=== PATIENT | female | born 1945 | race Caucasian/White ===

== ENCOUNTER → 2019-04-28 17:05 | Outpatient (CLI) | payer OTHER, SELFPAY ==
[2019-04-28 17:32] LABS: Bacteria 0 SEEN /hpf (None Seen); Mucous, Urine 0 SEEN /hpf (<or=2+); Red Blood Cells-Urine 0 SEEN /hpf (0-5); Squamous Epithelial Cells - UA 0 SEEN /hpf (5-10); White Blood Cells 0 SEEN /hpf (0-5)
[2019-04-28 18:03] LABS: Color, Urine Yellow (Yellow); Glucose, Dipstick Normal (Normal); Ketone-Dipstick 5 mg/dl (Negative); Leukocyte Esterase-Dipstick Negative /ul (Negative); Nitrite-Dipstick Negative (Negative); Occult Blood-Urine Negative /ul (Negative); Protein-Dipstick Negative (Negative); Specific Gravity, Urine 1.005 (1.002-1.030); Urine Bilirubin Dipstick Negative (Negative); Urine Clarity Clear (Clear); Urine Urobilinogen Normal (Normal)
== END ==
PROVIDERS: Family Provider Family Medicine; PCP Family Medicine; Referring Provider Nurse Practitioner Adult Health; Visit Provider Nurse Practitioner Adult Health
DX: R82.998 Other abnormal findings in urine (principal); R30.0 Dysuria
CPT/HCPCS: 81001; 87086; 87088

== ENCOUNTER → 2024-12-10 | Outpatient (CLI) | payer MEDICARE, SELFPAY ==
--- NOTE | 2024-12-10 06:53 | CT_ITS ---
PROCEDURE: CT ABD/PELVIS W/WO CONTRAST 12/10/2024 REASON FOR EXAM: HEMATURIA UTI TECHNIQUE: Abdomen and pelvis CT with intravenous contrast. Coronal and Sagittal reconstruction series were provided. Noncontrast, postcontrast and delayed contrast images obtained. PATIENT PREPARATION: Per protocol ORAL CONTRAST TYPE: None. CONTRAST: 71 cc [id number] IV One or more dose reduction techniques were used (e.g., Automated exposure control, adjustment of the mA and/or kV according to patient size, use of iterative reconstruction technique. RADIATION DOSE SUMMARY: CTDlvol: 35 mGy DLP: 1603.79 mGycm FINDINGS: Note of pulmonary emphysema at the visualized bases. Platelike area of atelectasis or scar at the left base. Appearance of pectus excavatum deformity suggested. Multiple varying size hepatic cysts are seen, incidental. The liver, adrenal glands, gallbladder, pancreas and spleen appear within limits. No renal stones or hydronephrosis. Symmetric appearing nephrograms without evidence of renal lesion identified. No perinephric edema. A few small left parapelvic renal cysts suggested. Portion of the right ureter as it crosses into the pelvis is not visualized on the delayed images otherwise the right and left renal collecting systems appear within limits. The bladder partially contains contrast and is nondistended, appears within limits. Abdominal aorta appears within limits without aneurysm. Aortoiliac atherosclerotic changes noted. No adenopathy. No bowel dilation or free air. Normal caliber appendix without secondary signs. Diverticulosis without diverticulitis. 3.1 x 2.2 cm cystic lesion left ovary/adnexa. The right ovary/adnexa and uterus appears within limits. No free fluid. Multilevel spondylosis/discogenic change appears greatest at L1-2 and L4-5. Scoliosis. CT/CT Abd/Pelvis W/WO Contrast IMPRESSION: No renal stones or hydronephrosis. Symmetric appearing nephrograms without evid ence of renal lesion identified. No perinephric edema. A few small left parapelvic renal cysts suggested. Portion of the righ t ureter as it crosses into the pelvis is not visualized on the delayed images otherwise the right and left renal collecting systems appear within limits. The bladder partially contains contrast and is nondistended, appears within limits. 3.1 x 2.2 cm cystic lesion left ovary/adnexa. Reading Location: [id number]
== END | disposition home or self-care (01) ==
PROVIDERS: PCP Family Medicine; Referring Provider Urology; Visit Provider Urology
DX: N39.0 Urinary tract infection, site not specified (principal); R31.9 Hematuria, unspecified
CPT/HCPCS: 74178; Q9967

== ENCOUNTER → 2024-12-26 | Outpatient (CLI) | payer MEDICARE, SELFPAY ==
--- NOTE | 2024-12-26 09:53 | US_ITS ---
PROCEDURE: PELVIC (NON ) 12/26/2024 REASON FOR EXAM: OVARIAN CYST TECHNIQUE: Transabdominal pelvic ultrasound COMPARISON: CT from 12/10/2024 FINDINGS: Uterus measures 6.3 x 4.2 x 2.9 cm. Uterus is heterogenous with scattered calcifications. Endometrial thickening is 3.4 mm. Fluid is noted within the endometrium. Cervix is within normal limits. Right ovary is not well visualized. Left ovary measures 3.5 x 2.53.0 cm. Normal vasculature is noted within the left ovary. A 2.5 x 2.1 x 2.5 cm cyst is noted within the left ovary. No significant free fluid within the cul-de-sac. US/Pelvic (Non ) IMPRESSION: Very limited exam due to poor bladder prep and overlying bowel gas. Right ovary not well seen. Normal vasculature within the left ovary. 2.5 cm c yst within the left ovary. Reading Location: [id number]
== END | disposition home or self-care (01) ==
LOC: US 09:51
PROVIDERS: PCP Family Medicine; Referring Provider Urology; Visit Provider Urology
DX: N83.209 Unspecified ovarian cyst, unspecified side (principal)
CPT/HCPCS: 76856

== ENCOUNTER → 2025-02-17 | Outpatient (CLI) | payer MEDICARE, SELFPAY ==
--- NOTE | 2025-02-17 12:48 | US_ITS ---
PROCEDURE: PELVIC (NON ) 02/17/2025 REASON FOR EXAM: LEFT OVARIAN CYST TECHNIQUE: PELVIC (NON ) COMPARISON: Prior study dated December 26, 2024. FINDINGS: Measurements: Uterus: 6.2 cm x 4.5 cm x 3 cm with a volume of 44.04 mL Endometrial Thickness: 3.2 mm. This is thickened for the postmenopausal phase. Right Ovary: Not visualized. Left Ovary: 3.7 cm x 3.6 cm x 2.8 cm with a volume of 19.64 mL. Uterus: Unremarkable Endometrium: Endometrial thickening for the patient's postmenopausal phase measuring 3.2 mm. Right ovary: Not visualized. Left ovary: 2.6 cm 2.9 cm x 2.7 cm left ovarian cyst. This has increased slightly as compared to prior study. Other: US/Pelvic (Non ) IMPRESSION: 2.6 cm 2.9 cm 2.7 cm left ovarian cyst. Follow-up recommended. Mild thickening of the endometrium for the patient's post menopausal state. Reading Location: [place] [id number]
--- NOTE | 2025-02-17 12:48 | US_ITS ---
PROCEDURE: PELVIC (NON ) 02/17/2025 REASON FOR EXAM: LEFT OVARIAN CYST TECHNIQUE: PELVIC (NON ) COMPARISON: Prior study dated December 26, 2024. FINDINGS: Measurements: Uterus: 6.2 cm x 4.5 cm x 3 cm with a volume of 44.04 mL Endometrial Thickness: 3.2 mm. This is thickened for the postmenopausal phase. Right Ovary: Not visualized. Left Ovary: 3.7 cm x 3.6 cm x 2.8 cm with a volume of 19.64 mL. Uterus: Unremarkable Endometrium: Endometrial thickening for the patient's postmenopausal phase measuring 3.2 mm. Right ovary: Not visualized. Left ovary: 2.6 cm 2.9 cm x 2.7 cm left ovarian cyst. This has increased slightly as compared to prior study. Other: US/Pelvic (Non ) IMPRESSION: 2.6 cm 2.9 cm 2.7 cm left ovarian cyst. Follow-up recommended. Mild thickening of the endometrium for the patient's post menopausal state. Reading Location: [place] [id number]
== END | disposition home or self-care (01) ==
LOC: US 12:42
PROVIDERS: PCP Family Medicine; Referring Provider Obstetrics & Gynecology; Visit Provider Obstetrics & Gynecology
DX: N83.202 Unspecified ovarian cyst, left side (principal)
CPT/HCPCS: 76856